=== PATIENT | female | born 1990 | race Caucasian/White ===

== ENCOUNTER 2019-09-01 21:33 | Emergency (ER) | payer MEDICAID ==
[~2019-09-01 21:33] MED LIST: Iopamidol 370 76% 100 ML VIAL ONE
[2019-09-01 22:05] LABS: Bilirubin Negative (Negative); Blood, Urine Negative (Negative); Clarity Clear (Clear); Glucose, Urine (Dipstick) Negative (Negative); Leukocyte Negative (Negative); Nitrite Negative (Negative); Protein, Urine (Dipstick) Negative (Neg-Trace); Urobilinogen 0.2 mg/dL (Less than 2)
[2019-09-01] MEDS ORDERED: Ondansetron PF 4 MG/2 ML Vial ONE (22:08)
[2019-09-01] MEDS ORDERED: Morphine 4 MG/ML VIAL ONE (22:08)
[2019-09-01] MEDS ORDERED: Sodium Chloride 0.9% 1,000 ML ONE ×2 (22:08→23:25)
[2019-09-01 22:23] LABS: #Basophils 0.1 thou/uL (0.0-0.2); #Eosinphils 0.4 thou/uL (0.0-0.7); #Lymphocytes 3.6 thou/uL (1.20-3.40); #Monocytes 0.7 thou/uL (0.11-0.59); %Basophils 0.7 % (0.0-1.0); %Eosinophils 3.2 % (0.0-10.0); %Lymphocytes 30.5 % (21.0-51.0); %Monocytes 6.3 % (0.0-10.0); %Neutrophils 59.3 % (42.0-75.0); Hemoglobin 12.6 g/dL (12.0-16.0); Mean Corpuscular HGB CONC 32.3 g/dL (32.0-36.0); Mean Corpuscular Hemoglobin 30.6 pg (27.0-31.0); Mean Corpuscular Volume 94.8 fL (78.0-98.0); Mean Platelet Volume 9.3 fL (7.4-10.4); Platelet Count 207 thou/uL (130-400); RBC Distribution Width 11.9 % (11.5-14.5); Red Blood Cell (RBC) Count 4.11 mill/uL (4.20-5.40); White Blood Cell (WBC) Count 11.8 thou/uL (4.8-10.8)
[2019-09-01 22:36] LABS: ALT (SGPT) 22 U/L (8-55); AST (SGOT) 25 U/L (5-34); Albumin 4.3 g/dL (3.5-5.0); Alkaline Phosphatase 59 U/L (40-110); Anion Gap 12 mmol/L (10-20); BUN (Urea Nitrogen) 15 mg/dL (7.0-18.7); Bilirubin, Total 0.3 mg/dL (0.2-1.2); Calc. Creatinine Clearance 0 mL/min (70-130); Calcium 9.3 mg/dL (7.8-10.44); Carbon Dioxide 25 mmol/L (22-29); Chloride 109 mmol/L (98-107); Estimated GFR-MDRD 66; Globulin 2.3 g/dL (2.4-3.5); Glucose 94 mg/dL (70-105); Lipase 103 U/L (8-78); Potassium 4.1 mmol/L (3.5-5.1); Protein, Total 6.6 g/dL (6.0-8.3); Sodium 142 mmol/L (136-145)
--- NOTE | 2019-09-01 22:46 | CT ---
CT Abdomen Pelvis W Con HISTORY: Right lower quadrant pain COMPARISON: None. FINDINGS: The lung bases are clear. The liver, spleen, pancreas and gallbladder regions appear unremarkable. There is no significant periaortic adenopathy. There is no significant mesenteric adenopathy. Mild am ount of stool seen throughout the colon. CT of pelvis performed with contrast enhancement: There is no evidence of adenopathy, mass or free fl uid. The appendix is normal. IMPRESSION: No acute findings of abdomen or pelvis.
[2019-09-01] MEDS ORDERED: Morphine 2 MG/ML SYRINGE ONE (23:25)
== END 2019-09-01 23:59 | disposition home or self-care (01) ==
LOC: MADERS 21:33
DX: K85.90 Acute pancreatitis without necrosis or infection, unspecified (principal)
CPT/HCPCS: 74177; 80053; 81003; 83605; 83690; 85025; 96361; 96374; 96375; 96376; J2270; J2405; J7050; Q9967